=== PATIENT | male | born 1980 | race Caucasian/White ===

== ENCOUNTER → 2020-10-05 15:50 | Outpatient (CLI) | payer OTHER, SELFPAY ==
[2020-10-05 16:08] VITALS: BP 135/94; PULSE 70; RESP 16; TEMP 36.6; O2SAT 98; BMI 28.1
[2020-10-05] MEDS: Penicillin G Benzathine 2.4 MU/4 ML Syringe IM (16:20)
== END ==
PROVIDERS: PCP Internal Medicine; Referring Provider Internal Medicine; Visit Provider Internal Medicine
DX: A53.0 Latent syphilis, unspecified as early or late (principal)
CPT/HCPCS: 96372

== ENCOUNTER → 2023-01-29 | Outpatient (CLI) | payer BC, SELFPAY ==
--- NOTE | 2023-01-29 10:06 | US_ITS ---
STUDY: ABDOMINAL ULTRASOUND - RIGHT UPPER QUADRANT; ELASTOGRAPHY REASON FOR VISIT: Male, 42 years old. Elevated liver function tests. TECHNIQUE: Ultrasound evaluation of the right upper quadrant was performed with real-time and static denny-scale imaging. Point quantification shear wave elastography was performed ([email or web address]). TECHNICAL QUALITY: Adequate. COMPARISON: None. FINDINGS: Liver: The liver measures 16.1 cm. There is increased echogenicity consistent with fatty infiltration. The bile ducts are within normal limits. There is hepatic color flow. The direction of portal flow is hepatopetal. There is no demonstrated mass lesion. Median liver stiffness measured 7.03 kPa. Gallbladder: Normal distended gallbladder. The gallbladder wall measures 1.9 mm. There is a negative sonographic Qureshi''s sign. There is no pericholecystic fluid. There are no gallstones. Common Bile Duct (C.B.D.): The common bile duct measures 4.4 mm. Pancreas: There is normal echogenicity of the visualized pancreas. There is no demonstrated pancreatic mass or cyst. Right Kidney: Normal size of the right kidney. The right kidney measures 11.9 cm x 5.7 cm x 5.7 cm. Normal renal cortex. The right cortex measures 1.3 cm. There is no demonstrated renal mass or cyst. There is no right hydronephrosis. US/ABD Limited w/ Elastography IMPRESSION: 1. Liver stiffness measures 7.03 kPa compatible with F2-F3 (Mild to moderate liver fibrosis) Metavir score. Electronically Signed: Amadou Blair MD at 9:45 EDT ,
== END | disposition home or self-care (01) ==
PROVIDERS: PCP Internal Medicine; Referring Provider Internal Medicine; Visit Provider Internal Medicine
DX: R94.5 Abnormal results of liver function studies (principal)
CPT/HCPCS: 76705; 76981

== ENCOUNTER → 2024-12-13 | Outpatient (CLI) | payer BC, SELFPAY ==
--- NOTE | 2024-12-13 07:34 | US_ITS ---
PROCEDURE: ABD LIMITED W/ ELASTOGRAPHY REASON FOR EXAM: ABDOMEN LIMITED WITH ELASTOGRAPHY - HEPATIC FIBROSIS COMPARISON: None. TECHNIQUE: Right upper quadrant abdominal ultrasound. Alfredo ElastQ Imaging shear wave elastography for non-invasive assessment of liver tissue stiffness. Alfredo EPIQ Elite. FINDINGS: LIVER: Size: Unremarkable Length: 16.2 cm Echotexture: Diffusely echogenic suggesting fatty infiltration Contour: Normal Lesions: None identified Elastography: EQI Med: 7.0 kPa EQI Med Jamir: 1.52 m/s IQR/Med: 22 %* GALLBLADDER: Normal COMMON BILE DUCT: Normal measuring 3.6 mm. PANCREAS: Normal Visualized portions of the right kidney are unremarkable. No right upper quadrant ascites. US/ABD Limited w/ Elastography IMPRESSION: [id number] hepatic fibrosis. Diffuse fatty infiltration of the liver. Reference Values: SRU <1.37 m/s (5.7kPa): No to mild fibrosis 1.37 m/s - 2.2 m/s: Moderate to severe fibrosis >2.2 m/s (15kPa): Significant fibrosis / cirrhosis METAVIR Score F2 or higher: 1.34 m/s (5.7kPa) F3 or higher: 1.55 m/s (7.3kPa) F4: 1.80 m/s (10kPa) * If the IQR/Med is >30%, the variance in the measurements is a large and the a ccuracy of the measurement may be in question. Reading Location: [id number]
== END | disposition home or self-care (01) ==
LOC: US 07:29
PROVIDERS: PCP Internal Medicine; Referring Provider Internal Medicine; Visit Provider Internal Medicine
DX: K76.0 Fatty (change of) liver, not elsewhere classified (principal)
CPT/HCPCS: 76705; 76981